=== PATIENT | female | born 1975 | race Caucasian/White ===

== ENCOUNTER 2019-03-25 18:40 | Emergency (ER) | payer OTHER ==
[~2019-03-25] VITALS: Ht 165.1 cm; Wt 108.9 kg
[2019-03-25 18:40] VITALS: BP_SYST 115
--- NOTE | 2019-03-25 18:40 | NUR ---
Patient triaged and placed in waiting room. VSS and patient appears in no acute distress at this time. Accompanied by SELF, awaiting available bed, and MD notified of need for MSE.
--- NOTE | 2019-03-25 19:55 | NUR ---
Placed in room 6 . Placed on cardiac cath tech, blood pressure machine and pulse oximeter. To gown for exam. Side rails up.
[2019-03-25] MEDS ORDERED: KETOROLAC TROMETHAMINE 30 MG VIAL IVP ONE (20:45)
--- NOTE | 2019-03-25 21:00 | NUR ---
Dr. Mathew bedside for Pt Eval
[2019-03-25 21:04] LABS: BASOPHILS % (AUTO) 0.6 % (0.0-2.0); EOSINOPHILS # (AUTO) 0.1 K/uL (0.0-0.4); EOSINOPHILS % (AUTO) 1.6 % (0.0-4.0); HEMATOCRIT 40.1 % (36-48); HEMOGLOBIN 13.8 g/dL (12.0-16.0); LYMPHOCYTES # (AUTO) 2.5 K/uL (1.0-5.5); LYMPHOCYTES % (AUTO) 31.3 % (20.5-51.5); MEAN CORPUSCULAR HEMOGLOBIN 31 pg (27-31); MEAN CORPUSCULAR HGB CONC 34 % (32-36); MEAN CORPUSCULAR VOLUME 90 fL (79.0-98.0); MONOCYTES # (AUTO) 0.6 K/uL (0.0-1.0); MONOCYTES % (AUTO) 7.4 % (1.7-9.3); NEUTROPHILS # (AUTO) 4.7 K/uL (1.8-7.7); NEUTROPHILS % (AUTO) 59.1 % (40.0-70.0); PLATELET COUNT (AUTO) 239 K/uL (130-430); RED BLOOD CELL COUNT(AUTO) 4.46 MIL/uL (4.2-6.2); RED CELL DISTRIBUTION WIDTH 14.2 % (9.0-15.0); WHITE BLOOD COUNT (AUTO) 7.9 K/uL (4.8-10.8)
--- NOTE | 2019-03-25 21:05 | NUR ---
Pt BIB family to ED C/O intermittent right-sided chest pain that radiates to the right neck, right shoulder, and right arm for 3-4 days. The chest pain is rated 9/10 intensity and described as warmth and heaviness. She states taking Ibuprofen with minimal improvement. She reports allergies top Vicodin as she passes out when taking it. No other injuries and or complaints noted VSS no s/s of acute distress. Resting on gurney with rails up
[2019-03-25 21:16] LABS: CREATININE 0.56 mg/dL (0.55-1.30)
[2019-03-25 21:17] LABS: POTASSIUM 4.3 mmol/L (3.5-5.1)
[2019-03-25 21:20] LABS: ALBUMIN 3.7 g/dL (3.4-4.8); TOTAL BILIRUBIN 0.3 mg/dL (0.0-1.0)
[2019-03-25 22:23] LABS: ERYTHROCYTE SEDIMENTATION RATE 16 MM/HR (0-20)
[2019-03-25] MEDS ORDERED: MORPHINE 4 MG/ML INJ. SYRINGE IVP ONE (22:45)
[2019-03-25] MEDS ORDERED: DIPHENHYDRAMINE INJ 50 MG/ML VIAL IVP ONE (22:45)
--- NOTE | 2019-03-25 23:54 | NUR ---
Patient given written and verbal discharge instructions and verbalizes understanding. ER MD discussed with patient the results and treatment provided. Patient in stable condition. ID arm band removed. IV catheter removed intact and dressing applied, no active bleeding. Rx of Diazepam and Tylenol with codeine given. Patient educated on pain management and to follow up with PMD. Pain Scale 2/10. Opportunity for questions provided and answered. Medication side effect fact sheet provided.
[2019-03-26 03:22] VITALS: BP_SYST 122
== END 2019-03-25 23:54 | disposition home or self-care (01) ==
LOC: SED 18:40
DX: R07.89 Other chest pain (principal); M79.7 Fibromyalgia; Z90.89 Acquired absence of other organs
CPT/HCPCS: 36415; 80053; 71045; 82550; 83880; 84484; 85025; 85379; 85651; 93005; 96374; 96375; 99284; J1200; J1885; J2270

== ENCOUNTER 2019-07-01 19:55 | Emergency (ER) | payer OTHER ==
[~2019-07-01] VITALS: Ht 165.1 cm; Wt 113.4 kg
[2019-07-01 20:01] VITALS: BP_SYST 155
--- NOTE | 2019-07-01 20:18 | NUR ---
Pt ambulatory to [facility] for evaluation
--- NOTE | 2019-07-01 20:20 | NUR ---
Pt brought by self, A&Ox4, pt presents to ER with R knee pain after she fell on monday, abrassion to R knee , skin pink and warm, afebrile, pt ambulatory , will cont to monitor.
--- NOTE | 2019-07-01 20:30 | NUR ---
Alona Sy RESERVATIONIST at bedside examining patient
[2019-07-01] MEDS ORDERED: DIPH-TET-PERTUS Vaccine 0.5 ML VIAL (ADACEL) I.M. ONE (20:45)
[2019-07-01] MEDS ORDERED: BACITRACIN 1 GM OINT TP ONE (21:15)
--- NOTE | 2019-07-01 22:12 | NUR ---
dPatient given written and verbal discharge instructions and verbalizes understanding. ER MD discussed with patient the results and treatment provided. Patient in stable condition. ID arm band removed. Rx of Keflex, Motrin, Mupirocin given. Patient educated on pain management and to follow up with PMD. Pain Scale 0. Opportunity for questions provided and answered. Medication side effect fact sheet provided.
[2019-07-01 22:13] VITALS: BP_SYST 155
== END 2019-07-01 22:13 | disposition home or self-care (01) ==
LOC: SED 19:55
DX: S80.01XA Contusion of right knee, initial encounter (principal); R03.0 Elevated blood-pressure reading, without diagnosis of hypertension; M79.7 Fibromyalgia; W18.39XA Other fall on same level, initial encounter; Y93.89 Activity, other specified; Y92.832 Beach as the place of occurrence of the external cause; Y99.8 Other external cause status
CPT/HCPCS: 73564; 90715; 99283

== ENCOUNTER 2020-10-03 20:58 | Emergency (ER) | payer OTHER, SELFPAY ==
[~2020-10-03] VITALS: Ht 165.1 cm; Wt 108.9 kg
[2020-10-03 21:04] VITALS: BP_SYST 138
--- NOTE | 2020-10-03 21:04 | NUR ---
Patient triaged and placed in [facility]SIDE. VSS and patient appears in no acute distress at this time. Accompanied by SELF, awaiting available bed, and MD notified of need for MSE.
[2020-10-03] MEDS ORDERED: ASPIRIN 81 MG TAB.CHEW PO ONE (21:30)
[2020-10-03 21:52] LABS: BASOPHILS % (AUTO) 0.2 % (0.0-2.0); EOSINOPHILS % (AUTO) 0.5 % (0.0-4.0); HEMATOCRIT 40.5 % (36-48); HEMOGLOBIN 13.8 g/dL (12.0-16.0); LYMPHOCYTES # (AUTO) 1.1 K/uL (1.0-5.5); LYMPHOCYTES % (AUTO) 27.9 % (20.5-51.5); MEAN CORPUSCULAR HEMOGLOBIN 31 pg (27-31); MEAN CORPUSCULAR HGB CONC 34 % (32-36); MEAN CORPUSCULAR VOLUME 90 fL (79.0-98.0); MONOCYTES # (AUTO) 0.2 K/uL (0.0-1.0); MONOCYTES % (AUTO) 5.9 % (1.7-9.3); NEUTROPHILS # (AUTO) 2.5 K/uL (1.8-7.7); NEUTROPHILS % (AUTO) 65.5 % (40.0-70.0); PLATELET COUNT (AUTO) 180 K/uL (130-430); RED BLOOD CELL COUNT(AUTO) 4.51 MIL/uL (4.2-6.2); RED CELL DISTRIBUTION WIDTH 14.2 % (9.0-15.0); WHITE BLOOD COUNT (AUTO) 3.8 K/uL (4.8-10.8)
--- NOTE | 2020-10-03 21:56 | NUR ---
ZOLTAN CROWDER examining patient.
--- NOTE | 2020-10-03 22:00 | NUR ---
patient alert and oriented x4 c/o of epigastric chest pain that started yesterday. patient tested positive for COVID earlier today around 6pm. patient spoke with her primary care provider and told her she was having chest pain and recommended her to come to ER. patients chest pain is nonradiating and dull. will continue to monitor.
[2020-10-03 22:06] LABS: CALCIUM 8.4 mg/dL (8.4-11.0); CREATININE 0.62 mg/dL (0.55-1.30); POTASSIUM 3.4 mmol/L (3.5-5.1)
[2020-10-03 22:13] LABS: ALBUMIN 3.7 g/dL (3.4-4.8); TOTAL BILIRUBIN 0.4 mg/dL (0.0-1.0)
--- NOTE | 2020-10-03 22:35 | NUR ---
patient medicated per MD orders. will continue to monitor.
[2020-10-03 23:28] VITALS: BP_SYST 131
--- NOTE | 2020-10-03 23:28 | NUR ---
Patient given written and verbal discharge instructions and verbalizes understanding. ER MD discussed with patient the results and treatment provided. Patient in stable condition. ID arm band removed. Rx of levaquin, zinc, decadron, albuterol inhaler given. Patient educated on pain management and to follow up with PMD. Pain Scale 0/10. Opportunity for questions provided and answered. Medication side effect fact sheet provided.
== END 2020-10-03 23:28 | disposition home or self-care (01) ==
LOC: SED 20:58
DX: U07.1 COVID-19 (principal); J12.89 Other viral pneumonia; R07.9 Chest pain, unspecified
CPT/HCPCS: 36415; 71045; 80053; 82550-TC; 83880; 84484; 84703; 85025; 85379; 93005; 99285

== ENCOUNTER 2021-09-08 15:14 | Emergency (ER) | payer OTHER, SELFPAY ==
[~2021-09-08] VITALS: Ht 165.1 cm; Wt 108.9 kg
--- NOTE | 2021-09-08 15:20 | NUR ---
Patient to ER bed 07 to gown for evaluation. Side rails up. Report given to MERY Keene
[2021-09-08 15:25] VITALS: BP_SYST 179
--- NOTE | 2021-09-08 15:27 | NUR ---
pt. came in with c/o pain to left knee down to ankle, states fell last monday landed on knee and monday noticed alot of bruising, still having pain to knee 03/18 and to ankle 12/16, has been taking OTC Motrin for pain relief, pt. here for rassurance that everything is healing okay,pain does not worsen with weight bearing
--- NOTE | 2021-09-08 15:59 | NUR ---
DR GARCIA AT BEDSIDE FOR EVALUATION
[2021-09-08] MEDS ORDERED: ACETAMINOPHEN 325 MG TABLET PO ONE (16:15)
[2021-09-08 18:00] VITALS: BP_SYST 133
== END 2021-09-08 18:00 | disposition home or self-care (01) ==
LOC: SED 15:14
DX: S90.02XA Contusion of left ankle, initial encounter (principal); S80.02XA Contusion of left knee, initial encounter; W18.39XA Other fall on same level, initial encounter; Y93.89 Activity, other specified; Y92.89 Other specified places as the place of occurrence of the external cause; Y99.8 Other external cause status
CPT/HCPCS: 73564; 99284

== ENCOUNTER 2022-02-22 17:56 | Emergency (ER) | payer SELFPAY ==
[~2022-02-22] VITALS: Ht 165.1 cm; Wt 99.8 kg
[2022-02-22 18:10] VITALS: BP_SYST 123
[2022-02-22] MEDS ORDERED: IBUP-1969 PO (19:39)
[2022-02-22] MEDS ORDERED: HYDR-3917 PO (19:39)
[2022-02-22 21:13] VITALS: BP_SYST 123
== END 2022-02-22 21:13 | disposition home or self-care (01) ==
LOC: SED 17:56
DX: S93.402A Sprain of unspecified ligament of left ankle, initial encounter (principal); S93.602A Unspecified sprain of left foot, initial encounter; X58.XXXA Exposure to other specified factors, initial encounter; Y93.84 Activity, sleeping; Y92.89 Other specified places as the place of occurrence of the external cause; Y99.8 Other external cause status
CPT/HCPCS: 99284